=== PATIENT | male | born 1990 ===

== ENCOUNTER 2017-01-21 17:07 | Emergency (ER) | payer BC ==
[2017-01-21 17:16] VITALS: O2SAT 100; BMI 24.0
[2017-01-21] MEDS ORDERED: Sodium Chloride 0.9% 1,000 ML IV ONE (17:44)
[2017-01-21] MEDS ORDERED: Sodium Chloride 0.9% 1,000 ML ONE (18:12)
--- NOTE | 2017-01-21 18:16 | C.PDOC ---
History Of Present Illness Patient presents to ED c/o epigastric/chest pain/burning sensation. Symptoms worsen with laying down and after food intake. Patient has been seen at [facility] on 01/18 and was told he has GERD - given rx for Protonix. Patient states he has been taking Protonix without significant relief. He denies SOB, fever, cough, vomiting/diarrhea, dysuria/hematuria. Patient was seen by GI Dr. Franco today (prior to coming to ED), is supposed to have endoscopy sometime in February (his insurance is currently out of network). Time Seen by Provider: 01/21/17 17:25 Chief Complaint (Nursing): Chest Pain History Per: Patient History/Exam Limitations: no limitations Onset/Duration Of Symptoms: Days Current Symptoms Are (Timing): Still Present Severity: Moderate Location Of Pain/Discomfort: Epigastric Radiation Of Pain To:: Back Quality Of Discomfort: Burning Associated Symptoms: denies: Fever, Nausea, Vomiting, Diarrhea, Constipation Past Medical History Reviewed: Historical Data, Nursing Documentation, Vital Signs Vital Signs: Last Vital Signs Temp 98.3 F 01/21/17 18:25 Pulse 56 L 01/21/17 18:25 Resp 18 01/21/17 18:25 BP 113/70 01/21/17 18:25 Pulse Ox 100 01/21/17 19:05 - Medical History PMH: Anxiety, Depression Family History: States: No Known Family Hx - Social History Hx Alcohol Use: No Hx Substance Use: No - Immunization History Hx Tetanus Toxoid Vaccination: No Hx Influenza Vaccination: Yes (01/13/17) Hx Pneumococcal Vaccination: No Review Of Systems Except As Marked, All Systems Reviewed And Found Negative. Constitutional: Negative for: Fever, Chills Cardiovascular: Negative for: Chest Pain, Palpitations Respiratory: Negative for: Cough, Shortness of Breath Gastrointestinal: Positive for: Abdominal Pain (epigastric burning pain radiating to chest/back). Negative for: Nausea, Vomiting, Diarrhea Genitourinary: Negative for: Dysuria, Hematuria Skin: Negative for: Rash Physical Exam - Physical Exam Appears: Well, Non-toxic, No Acute Distress Skin: Warm, Dry Oral Mucosa: Moist Cardiovascular: Rhythm Regular Respiratory: Normal Breath Sounds, No Rales, No Rhonchi, No Wheezing Gastrointestinal/Abdominal: Bowel Sounds, Soft, Tenderness (epigastric TTP, (-) Davis's, (-) McBurney's), No Distention, No Guarding, No Rebound Back: No CVA Tenderness Neurological/Psych: Oriented x3 ED Course And Treatment - Laboratory Results Result Diagrams: 01/21/17 18:27 01/21/17 18:27 ECG: Interpreted By Me, Viewed By Me (NSR 60 bpm, normal axis, no acute ST/T wave changes) ECG Interpretation: Normal O2 Sat by Pulse Oximetry: 100 (RA) Pulse Ox Interpretation: Normal - Radiology CXR: Interpreted by Me, Viewed By Me CXR Interpretation: Yes: No Acute Disease. No: Infiltrates Progress Note: Blood work, UA ordered and reviewed. Patient given IV NS bolus, IV pepcid. Reevaluation Time: 19:05 Reassessment Condition: Improved (On reassessment, patient is resting comfortably and states he feels better. On exam, abdomen is soft and nontender. Blood work shows mild elevation in T bili, otherwise unremarkable. Patient instructed to contintue Protonic daily, Rx for pepcid given to be used PRN. Patient also instructed to avoid spicy/acidic foods, not to eat several hours prior to bedtime, and to follow up with GI within 1 week. He understands he should return to ED if symptoms worsen.) Disposition Counseled Patient/Family Regarding: Studies Performed, Diagnosis, Need For Followup, Rx Given - Disposition Referrals: Danny Franco MD [Staff Provider] - Annabelle Heart MD [Medical Doctor] - Disposition: HOME/ ROUTINE Disposition Time: 19:05 Condition: STABLE Additional Instructions: FOLLOW UP WITH GI SPECIALIST WITHIN 1 WEEK USE PROTONIX EVERY DAY, AND PEPCID NEEDED AVOID EATING RIGHT BEFORE BEDTIME AVOID SPICY/ACIDIC FOODS RETURN TO ER IF SYMPTOMS WORSEN Prescriptions: Famotidine [Pepcid] 20 mg PO BID PRN #30 tab PRN Reason: abdominal Ondansetron [Zofran Odt] 4 mg PO Q8 PRN #12 odt PRN Reason: Nausea/Vomiting Instructions: Gastroesophageal Reflux Disease (ED) Forms: [employer] (Romanian) Print Language: NEPALI - POA Present On Arrival: None - Clinical Impression Clinical Impression: Epigastric burning sensation, GERD (gastroesophageal reflux disease)
--- NOTE | 2017-01-21 18:23 | RAD ---
HISTORY: CP COMPARISON: None available. TECHNIQUE: Chest, one view. FINDINGS: LUNGS: No focal consolidation. Please note that chest x-ray has limited sensitivity for the detection of pulmonary masses. PLEURA: No significant pleural effusion identified. No definite pneumothorax . CARDIOVASCULAR: The cardiomediastinal silhouette appears within normal limits of size. OSSEOUS STRUCTURES: No acute osseous abnormality identified. VISUALIZED UPPER ABDOMEN: Unremarkable. OTHER FINDINGS: None. IMPRESSION: No focal consolidation, significant pleural effusion, or definite pneumothorax identified.
[2017-01-21 18:38] LABS: BASO # 0.1 K/uL (0.0-0.2); BASO % 0.8 % (0.0-2.0); CHLORIDE 102 mmol/L (98-107); EOS # 0.1 K/uL (0.0-0.7); EOS % 1.6 % (0.0-4.0); HEMATOCRIT 44.6 % (35.0-51.0); LYMPH # 1.7 K/uL (1.0-4.3); LYMPH % 24.2 % (20.0-40.0); MEAN CELL VOLUME 82.8 fL (80.0-94.0); MEAN CORPUSCULAR HEMOGLOBIN 29.2 pg (27.0-31.0); MEAN CORPUSCULAR HGB CONC 35.3 g/dL (33.0-37.0); MEAN PLATELET VOLUME 8.8 fL (7.2-11.7); MONO # 0.5 K/uL (0.0-0.8); MONO % 6.8 % (0.0-10.0); NRBC % 0.2 % (0.0-2.0); RED CELL DISTRIBUTION WIDTH 12.8 % (11.5-14.5); WHITE BLOOD COUNT 6.9 K/uL (4.8-10.8)
[2017-01-21 18:39] LABS: SODIUM 142 mmol/L (132-148)
[2017-01-21 18:41] LABS: ALB/GLOB RATIO 1.6 (1.0-2.1); ALKALINE PHOSPHATASE 60 U/L (38-126); ALT/SGPT 30 U/L (21-72); AST/SGOT 23 U/L (17-59); BILIRUBIN,TOTAL 2.7 mg/dL (0.2-1.3); BLOOD UREA NITROGEN 11 mg/dL (9-20); CARBON DIOXIDE 26 mmol/L (22-30); GFR AFRICAN-AMERICAN > 60; GLUCOSE,RANDOM 79 mg/dL (75-110); TOTAL PROTEIN 7.6 g/dL (6.3-8.3)
[2017-01-21 18:42] LABS: CALCIUM 9.9 mg/dl (8.6-10.4)
[2017-01-21 19:21] VITALS: BP 113/70; PULSE 56; RESP 18; TEMP 98.3
--- NOTE | 2017-01-22 18:47 | CARD ---
APPROVED REPORT EKG Measurement Heart [id number] <Conclusion> Normal sinus rhythm Normal ECG for age.
== END 2017-01-21 19:20 | disposition home or self-care (01) ==
LOC: C.ER 17:07
DX: K21.9 Gastro-esophageal reflux disease without esophagitis (principal); R10.13 Epigastric pain